=== PATIENT | female | born 1965 | race Caucasian/White ===

== ENCOUNTER 2018-06-26 09:19 | Day surgery (SDC) | payer BC, SELFPAY ==
[2018-06-26 09:35] VITALS: BP 114/77; PULSE 64; RESP 16; TEMP 37; O2SAT 97
[2018-06-26] MEDS: Lactated Ringers 1,000 ML 80 ML IV (09:54)
[2018-06-26] MEDS: ceFAZolin 2 GM/50 ML BAG IVPB (10:45)
[2018-06-26] MEDS: Sodium Bicarbonate 50 MEQ/50 ML VIAL (10:55)
[2018-06-26] MEDS: Lidocaine 1% Multi-Dose 50 ML VIAL (10:55)
--- NOTE | 2018-06-26 11:14 | W.PM.DSUDISC ---
Discharge Plan Disposition Patient Disposition: HOME Condition: Good Discharge Details Reason For Visit: R CTS Attending Provider: Puneet Her Primary Care Provider: Nathaniel Vitale Home Meds and New Rx's Prescriptions: New hydrocodone-acetaminophen 5-325 mg tablet 1 tab PO Q4H PRN (Reason: pain) Qty: 6 RF: 0 acetaminophen 500 mg tablet 500 mg PO Q6H PRN PRN (Reason: pain) Qty: 60 RF: 3 ibuprofen 600 mg tablet 600 mg PO TID PRNQty: 60 RF: 3 No Action levothyroxine [Synthroid] 75 mcg tablet 75 mcg PO DAILY RF: 0 Discharge Instructions Stand Alone Forms: Sidraa Jeanie Tunnel Release Referrals: Puneet Her MD [ [facility] STAFF PHYSICIAN] - Activity:: Elevate Remove Dressings/Wound Care:: 48 hours Shower/Bathe:: 48 hours Diet:: As Tolerated Discharge Orders Discharge Orders: Discharge Order (Routine); Ordered 06/26/18 Ordered By: Puneet Her DS: Diagnosis Discharge Diagnosis (1) Right carpal tunnel syndrome: Status: Acute
[2018-06-26 11:42] VITALS: BP 92/54; PULSE 48; RESP 16; TEMP 36.8; O2SAT 95
--- NOTE | 2018-06-27 07:02 | W.PM.OP ---
Date of service: 06/26/18 Time of Service: 11:02 Operative Note DATE OF PROCEDURE: 06/26/18 PRE-OP DIAGNOSIS: Right carpal tunnel syndrome POST-OP DIAGNOSIS: same PROCEDURE: Right Endoscopic Carpal Tunnel Release SURGEON: Puneet Her ANESTHESIA: MAC ESTIMATED BLOOD LOSS: 0 PATHOLOGY: none sent TOURNIQUET TIME: 6 COMPLICATIONS: None Patient was transported to: same day Patient's condition: stable Indications: I have seen Lexie in clinic for symptoms of carpal tunnel syndrome. The numbness, tingling, and pain limited function. Clinical exam findings confirmed the diagnosis of carpal tunnel syndrome. Nonoperative measures such as bracing, time, activity modifications had been tried but disability and pain persisted. I discussed carpal tunnel release with the patient. I reviewed the risks of the procedure to include, but not limited to, bleeding, infection, pain, stiffness, incomplete release, damage to nerves or vessels, persistent numbness, recurrence. Despite these risks, the patient elected to proceed. Findings: There was tightened carpal tunnel. This was dilated and released successfully with the endoscopic with increased space within the tunnel. The antebrachial fascia was released proximally freeing the median nerve at the wrist. Procedure Description: Lexie was greeted in the preoperative holding area where the correct side was identified and marked. The consent was reviewed with the patient and signed. The history and physical was updated. All questions were answered. She was taken back to the operating room. The patient was placed into the supine position on the operating room table with the right arm on an arm board. A nonsterile tourniquet was placed high onto the arm. All bony prominences were well padded. Prophylactic antibiotics in the form of cefazolin were administered. The right arm was then prepped with Chloraprep and draped in a standard fashion with stockinette and extremity drape. A timeout to confirm correct identity, side and site, procedure, allergies, anesthesia, and medical concerns was performed. The surgical site was marked in the volar wrist creases in line with the radial border of the fourth ray. This area was anesthetized with approximately 6cc of 1% Lidocaine. The limb was then exsanguinated with an Esmarch. The skin was incised with a 15 blade, approximately 1cm. The skin only was cut and the deeper tissue was dissected bluntly with a tenotomy scissor, avoiding passing nerve and venous structures. The fascia was penetrated and opened bluntly. A two-prong skin hook was placed under this proximal fascial edge. A series of hamate finders were used to identify and dilate the carpal tunnel. Synovial elevator was used to free synovial attachments to the underside of the transverse carpal ligament. My thumb was kept in the palm to den the distal extent of the carpal tunnel and correctly position the hand. The Microaire endoscope was inserted without difficulty and without resistance. Excellent visualization showed horizontally running fibers of the transverse carpal ligament (TCL). The distal extent of the TCL was visualized and the end of the scope palpated with the thumb. The blade was elevated and withdrawn from distal to proximal. The TCL was split into two flaps. The endoscope was reinserted to confirm complete release and any remnant ligament was incised. The scope was withdrawn and the proximal aspect of the carpal tunnel was grossly inspected and appeared release with the median nerve visible. The antebrachial fascia at the level of the wrist was then freed from the overlying skin and then the underlying median nerve with blunt dissection. This was transected longitudinally for about 3cm proximal to the wrist incision. The wound was then irrigated with easy flow of irrigant distally and proximally. The incision was closed with a single 4-0 Nylon suture. The wound was dressed with Xeroform, Gauze, Kerlix and Shine. The tourniquet was deflated with the initial dressing and held with some pressure. Blood flow returned easily to all digits with capillary refill less than 2 seconds. The patient tolerated the procedure well and was returned to the Same Day Surgery area in a stable condition suffering no known complication.
== END 2018-06-26 12:04 | disposition home or self-care (01) ==
PROVIDERS: PCP Family Medicine; Visit Provider Student in an Organized Health Care Education/Training Program
PROC: 01N54ZZ Release Median Nerve, Percutaneous Endoscopic Approach (ICD-10-PCS; CPT 29848; principal; 2018-06-26 11:00)
DX: G56.01 Carpal tunnel syndrome, right upper limb (principal)
CPT/HCPCS: 29848; J0690; L3650

== ENCOUNTER 2018-07-05 06:27 | Day surgery (SDC) | payer BC, SELFPAY ==
[2018-07-05 06:40] VITALS: BP 102/67; PULSE 63; RESP 14; TEMP 35.6; O2SAT 98
[2018-07-05] MEDS: Lactated Ringers 1,000 ML 80 ML IV (07:00)
--- NOTE | 2018-07-05 07:06 | PDOC.DSDIS_ITS ---
Discharge Plan Disposition Patient Disposition: HOME Condition: Good Discharge Details Reason For Visit: Left Carpal Tunnel Attending Provider: Puneet Her Primary Care Provider: Nathaniel Vitale Home Meds and New Rx's Prescriptions: Continued levothyroxine [Synthroid] 75 mcg tablet 75 mcg PO DAILY RF: 0 hydrocodone-acetaminophen 5-325 mg tablet 1 tab PO Q4H PRN (Reason: pain) Qty: 6 RF: 0 acetaminophen 500 mg tablet 500 mg PO Q6H PRN PRN (Reason: pain) Qty: 60 RF: 3 ibuprofen 600 mg tablet 600 mg PO TID PRNQty: 60 RF: 3 Discharge Instructions Stand Alone Forms: Arden Ware Tunnel Release Referrals: Puneet Her MD [ [facility] STAFF PHYSICIAN] - Activity:: Elevate Remove Dressings/Wound Care:: 48 hours Shower/Bathe:: 48 hours Diet:: As Tolerated Discharge Orders Discharge Orders: Discharge Order (Routine); Ordered 07/05/18 Ordered By: Puneet Her DS: Diagnosis Discharge Diagnosis (1) Left carpal tunnel syndrome: Status: Acute
[2018-07-05] MEDS: Lidocaine 1% Multi-Dose 50 ML VIAL (07:26)
--- NOTE | 2018-07-05 07:42 | W.PM.OP ---
Date of service: 07/05/18 Time of Service: 07:42 Operative Note DATE OF PROCEDURE: 07/05/18 PRE-OP DIAGNOSIS: Left Carpal Tunnel Syndrome POST-OP DIAGNOSIS: same PROCEDURE: Left Endoscopic Carpal Tunnel Release SURGEON: Puneet Her ANESTHESIA: MAC ESTIMATED BLOOD LOSS: 0 PATHOLOGY: none sent TOURNIQUET TIME: 8 COMPLICATIONS: None Patient was transported to: same day Patient's condition: stable Indications: I have seen Lexie in clinic for symptoms of carpal tunnel syndrome. The numbness, tingling, and pain limited function. Clinical exam findings confirmed the diagnosis of carpal tunnel syndrome. Nonoperative measures such as bracing, time, activity modifications had been tried but disability and pain persisted. I discussed carpal tunnel release with the patient. She had a successful release on the right side. I reviewed the risks of the procedure to include, but not limited to, bleeding, infection, pain, stiffness, incomplete release, damage to nerves or vessels, persistent numbness, recurrence. Despite these risks, the patient elected to proceed. Findings: There was tightened carpal tunnel. There was notable synovitis seen within the carpal tunnel. This was dilated and released successfully with the endoscopic with increased space within the tunnel. The antebrachial fascia was released proximally freeing the median nerve at the wrist. Procedure Description: Lexie was greeted in the preoperative holding area where the correct side was identified and marked. The consent was reviewed with the patient and signed. The history and physical was updated. All questions were answered. Lexie was taken back to the operating room. The patient was placed into the supine position on the operating room table with the left arm on an arm board. A nonsterile tourniquet was placed high onto the arm. All bony prominences were well padded. Prophylactic antibiotics in the form of Cefazolin were administered. The left arm was then prepped with Chloraprep and draped in a standard fashion with stockinette and extremity drape. A timeout to confirm correct identity, side and site, procedure, allergies, anesthesia, and medical concerns was performed. The surgical site was marked in the volar wrist creases in line with the radial border of the fourth ray. This area was anesthetized with approximately 6cc of 1% Lidocaine. The limb was then exsanguinated with an Esmarch. The skin was incised with a 15 blade, approximately 1cm. The skin only was cut and the deeper tissue was dissected bluntly with a tenotomy scissor, avoiding passing nerve and venous structures. The fascia was penetrated and opened bluntly. A two-prong skin hook was placed under this proximal fascial edge. A series of hamate finders were used to identify and dilate the carpal tunnel. Synovial elevator was used to free synovial attachments to the underside of the transverse carpal ligament. My thumb was kept in the palm to den the distal extent of the carpal tunnel and correctly position the hand. The Microaire endoscope was inserted without difficulty and without resistance. Excellent visualization showed horizontally running fibers of the transverse carpal ligament (TCL). The distal extent of the TCL was visualized and the end of the scope palpated with the thumb. The blade was elevated and withdrawn from distal to proximal. The TCL was split into two flaps. The endoscope was reinserted to confirm complete release and any remnant ligament was incised. The scope was withdrawn and the proximal aspect of the carpal tunnel was grossly inspected and appeared release with the median nerve visible. The antebrachial fascia at the level of the wrist was then freed from the overlying skin and then the underlying median nerve with blunt dissection. This was transected longitudinally for about 3cm proximal to the wrist incision. The wound was then irrigated with easy flow of irrigant distally and proximally. The incision was closed with a single 4-0 Nylon suture. The wound was dressed with Xeroform, Gauze, Kerlix and Shine. The tourniquet was deflated with the initial dressing and held with some pressure. Blood flow returned easily to all digits with capillary refill less than 2 seconds. The suture from the right side was removed with usual suture removal technique. The patient tolerated the procedure well and was returned to the Same Day Surgery area in a stable condition suffering no known complication.
[2018-07-05 08:15] VITALS: BP 84/56; PULSE 54; RESP 16; TEMP 35.7; O2SAT 100
== END 2018-07-05 08:28 | disposition home or self-care (01) ==
PROVIDERS: PCP Family Medicine; Visit Provider Student in an Organized Health Care Education/Training Program
PROC: 01N54ZZ Release Median Nerve, Percutaneous Endoscopic Approach (ICD-10-PCS; CPT 29848; principal; 2018-07-05 07:30)
DX: G56.02 Carpal tunnel syndrome, left upper limb (principal)
CPT/HCPCS: 29848; J1100; J1885; J2405

== ENCOUNTER 2018-11-23 09:42 | Outpatient (CLI) | payer BC, SELFPAY ==
--- NOTE | 2018-11-23 09:59 | DI.RAD_ITS ---
SYMPTOM/DIAGNOSIS: RT SHOULDER PAIN RIGHT SHOULDER: Five views. No priors. There are mild hypertrophic changes seen at the acromioclavicular joint. The glenohumeral joint is well maintained. The bones are intact and normally mineralized. The soft tissues are unremarkable. IMPRESSION: Degenerative changes of the right acromioclavicular joint.
== END 2018-11-23 10:02 ==
PROVIDERS: PCP Family Medicine; Visit Provider Physician Assistant
DX: M25.511 Pain in right shoulder (principal); M19.011 Primary osteoarthritis, right shoulder
CPT/HCPCS: 73030

== ENCOUNTER 2018-12-06 03:47 | Outpatient (CLI) | payer BC, SELFPAY ==
--- NOTE | 2018-12-06 06:50 | DI.MRI_ITS ---
SYMPTOMS/DIAGNOSIS: RT SHOULDER PAIN, INJURY A CHILD, M25.551 RIGHT SHOULDER MRI: MRI examination of the shoulder was performed following intra-articular injection of contrast material by Dr. Her. Motion artifact limits interpretations of some images. There is hypertrophic degenerative spurring at the acromioclavicular joint and to a lesser degree of the glenoid and the humerus. Mild effacement of the glenoid labrum is noted without a focal tear. There is fluid in the biceps tendon sheath. The biceps tendon appears intact throughout its course. Normal signal in biceps tendon noted. There is an apparent partial thickness undersurface tear of the mid supraspinatus tendon, no retraction and no full thickness tear. No fluid in the subacromial bursa. The remainder of the rotator cuff appears normal. No gross ligamentous abnormality seen. Small subchondral cyst is noted in the greater tuberosity of the humerus. CONCLUSION: Somewhat limited study. Partial thickness undersurface supraspinatus nonretracted tear as described above. Hypertrophic degenerative changes at AC joint and glenohumeral joint. No additional significant findings.
[2018-12-06] MEDS: Gadoterate meglumine 20 ML VIAL 10 ML IVP (08:08)
[2018-12-06] MEDS: Lidocaine 2% Multi-Dose 20 ML VIAL IJ (08:10)
[2018-12-06] MEDS: Omnipaque 300 MG/ML 10 ML BTL IJ (08:10)
--- NOTE | 2018-12-06 08:10 | DI.RAD_ITS ---
SYMPTOM/DIAGNOSIS: RT SHOULDER PAIN. MRI ARTHROGRAM M25.511 FLUOROSCOPY 12/06 Fluoroscopy Time: 5 sec Fluoroscopy was utilized by Dr. Her during shoulder injection. Hard copy shows intra-articular injection reportedly on the right.
[2018-12-06] MEDS: Bupivacaine 0.5% Pres-Free 10 ML VIAL IJ (08:12)
--- NOTE | 2018-12-06 10:31 | DI.VRAD_ITS ---
EXAM: MR Right Upper Extremity Joint Without Contrast, Shoulder EXAM DATE/TIME: 12/06/2018 9:06 AM CLINICAL HISTORY: 53 years old, female; Other: Right shoulder pain; Injury as a child; Additional info: Mri arthrogram TECHNIQUE: Imaging protocol: MR of the Right upper extremity without contrast. Exam focused on the shoulder. COMPARISON: RF RT SHOULDER JOINT INJECTION 12/06/2018 7:51 AM FINDINGS: Some motion artifact limits evaluation. Rotator cuff: Mild tendinosis of the supraspinatus tendon. There is undersurface partial tearing of the proximal to mid fibers which measures approximately 0.7 cm. The infraspinatus, subscapularis and teres minor tendons are intact. Biceps tendon: Intact and centrally located in the bicipital groove. Glenoid labrum: Intact. Bones: Mild to moderate degenerative changes of the acromioclavicular joint. No acute fracture. There is a type I acromion on sagittal views. Subchondral cysts visualized in the posterior lateral humeral head. Other: No significant joint effusion. There is edema in the anterior soft tissues secondary to recent injection. IMPRESSION: 1. Supraspinatus tendon tendinosis with small undersurface partial tear. 2. 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 Dictated and Authenticated by: Neli Vazquez MD. Ordering:CONCEPCIÓN Smith MD
--- NOTE | 2018-12-07 17:08 | W.PROCNOTE ---
Date of service: 12/06/18 Time of Service: 08:08 Procedure Note Date of procedure: 12/06/18 Procedure: Right Shoulder Injection Surgeon/Proceduralist/Physician: Puneet Her Procedure Diagnosis: Right shoulder pain and instability Procedure Indications: Lexie has had persistent pain and instability of the RIGHT shoulder. Noninvasive measures have been tried. To serve as both diagnostic and therapeutic, an injection under fluoroscopy was recommended. I had discussed the risks of the procedure and the patient elected to proceed. Procedure Description: Lexie was greeted in the flouroscopy room. The correct side was identified and the consent was reviewed with the patient and signed. The patient was then placed in the supine position on the fluoroscopy table. The RIGHT shoulder was then prepped with Chloraprep. The anterior injection starting point was identiifed by bony landmarks and fluoroscopy. The skin and soft tissue in the tract of the injection was anesthetized with 1% Lidocaine. A spinal needle was then inserted deep into the shoulder joint at the level of the recess between the glenoid and superior humeral head. A small amount of Omnipaque solution was injected to confirm intraarticular placement. Once confirmed, the shoulder was injected with 12c of a mixture of 10cc of 0.5% Bupivicaine, 5cc of 2% Xylocaine, 5cc of Omnipaque, and 0.4cc of Gadavistl. A bandaid was placed on the injection site.
== END 2018-12-06 04:07 ==
PROVIDERS: PCP Family Medicine; Visit Provider Student in an Organized Health Care Education/Training Program
DX: M25.511 Pain in right shoulder (principal); M75.101 Unspecified rotator cuff tear or rupture of right shoulder, not specified as traumatic; M19.011 Primary osteoarthritis, right shoulder; M25.311 Other instability, right shoulder
CPT/HCPCS: 20610; 77002; 73221; J3490

== ENCOUNTER 2019-01-03 05:55 | Day surgery (SDC) | payer BC, SELFPAY ==
[2019-01-03] VITALS (8 sets, daily range): BP systolic 95–113; BP diastolic 57–80; PULSE 45–68; RESP 14–18; TEMP 36–36.5; O2SAT 95–98
[2019-01-03] MEDS: Lactated Ringers 1,000 ML 100 ML IV ×2 (06:54→08:03)
--- NOTE | 2019-01-03 07:09 | W.PM.DSUDISC ---
Discharge Plan Disposition Patient Disposition: HOME Condition: Stable Discharge Details Reason For Visit: RTC REPAIR Attending Provider: Woody Romero Primary Care Provider: Nathaniel Vitale Home Meds and New Rx's Prescriptions: New naproxen 250 mg tablet 250 mg PO BID PRN (Reason: pain) Qty: 60 RF: 0 aspirin 81 mg tablet,delayed release (DR/EC) 81 mg PO DAILY Qty: 30 RF: 0 oxycodone 5 mg tablet 5 mg PO Q4H PRN (Reason: pain, severe) Qty: 22 RF: 0 Continued levothyroxine [Synthroid] 75 mcg tablet 75 mcg PO DAILY RF: 0 acetaminophen 500 mg tablet 500 mg PO Q6H PRN PRN (Reason: pain) Qty: 60 RF: 3 Centrum Complete 18-400 mg-mcg Tablet 1 tab PO QAM RF: 0 Discontinued ibuprofen 600 mg tablet 600 mg PO TID PRNQty: 60 RF: 3 Discharge Instructions Additional Instructions: see separate forms Referrals: Woody Romero MD [ [facility] STAFF PHYSICIAN] - Discharge Orders Discharge Orders: Discharge Order (Routine); Ordered 01/03/19 Ordered By: Woody Romero
[2019-01-03] MEDS: ceFAZolin 2 GM/50 ML BAG IVPB (07:38)
[2019-01-03] MEDS: EPINEPHrine 1 MG/ML AMP pres-free (11:55)
--- NOTE | 2019-01-03 17:11 | ROE_ITS ---
Date of service: 01/03/19 Time of Service: 17:11 Operative Note Operative Note DATE OF PROCEDURE: 01/03/19 PRE-OP DIAGNOSIS: RIGHT shoulder: 1. Rotator cuff tear 2. LHB tendinopathy 3. Bursitis 4. Impingement 5. Multi-directional instability 6. Labral tear POST-OP DIAGNOSIS: same PROCEDURE: RIGHT shoulder arthroscopic: 1. Extensive debridement, CPT# 66210. This involved using arthroscopic hand instruments, power instruments, and radiofrequency instruments to debride areas of labral tearing, synovitis, and chondromalacia within the glenohumeral joint and subacromial region. 2. Biceps tenodesis, CPT# 97745. This involved reattaching the long head of the biceps tendon to the proximal humerus in the sub-pectoral area of the bicipetal groove at the correct tension. 3. Subacromial decompression, CPT# 86674. This involved releasing the coraco- acromial ligament using a radiofrequency wand, using a high-speed shaver to complete a bursectomy, and using a high-speed chriss to complete removal of bone spurs on the undersurface of the acromion. 4. Rotator cuff repair, CPT# 82772. This involved repair of the subscapularis and supraspinatus using anchors and sutures to reattach the rotator cuff back to the footprint of the lesser and greater tuberosity. 5. Posterior labral repair. This involved repair of a posterior labral tear back to the posterior glenoid rim using suture and anchor. 6. Capsular shift. This involved closure of the rotator interval using sutures passed between the MGHL and SGHL, which shifted the anterior inferior capsule superiorly to reduce pathologic laxity. The assistant front desk manager was medically required in order to help assist in techniques above, which require positioning the arm, holding the arthroscope, and manipulating 2 to 4 instruments and sutures at the same time. This cannot be done without the help of an experienced assistant front desk manager. SURGEON: Woody Romero ASSISTING SURGEON: Sarah Hernandez ANESTHESIA: GETA and regional ESTIMATED BLOOD LOSS: 30 PATHOLOGY: none sent COMPLICATIONS: None Patient was transported to: PACU Patient's condition: stable Implants: Arthrex: 4.75mm SwiveLocks x 2, Unicortical Proximal Biceps Tenodesis Button, 3.9 mm Knotless Corkscrew anchor x 2, and 2.9 mm PushLock Indications: The patient was diagnosed with the above conditions, failed exhaustive conservative nonoperative treatment measures, and appropriately indicated for surgical intervention. Findings: Right shoulder: Exam under anesthesia revealed multidirectional instability. Significant sulcus sign that was not diminished with external rotation. Anterior and posterior subluxation under testing. Significant synovitis, disruption of the biceps sling and medial subluxation of the biceps tendon. Inflammation and injection of the biceps tendon. Anterior, superior, posterior labral tearing. Full-thickness upper border of the subscapularis tendon tear. 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 Partial articular sided supraspinatus and infraspinatus tearing exposing approximately 50% of the footprint. Extensive subacromial bursitis and acromial bone spur. Intact bursal supraspinatus and infraspinatus tendons. Procedure Description: The patient was taken to the operating room and transferred to the operating room table. The correct patient, side of the procedure, and procedure were all verified prior to induction of general anesthesia. While under anesthesia, bilateral shoulders were examined. The patient was then positioned in the beachchair position. All bony prominences were well-padded. Preoperative antibiotics were administered. The shoulder and upper extremity was prepped and draped in the usual sterile fashion. Standard posterior portal was then made using a stab incision inferior and medi al to the posterior lateral aspect of the acromion. The arthroscope was placed into the glenohumeral joint and a complete diagnostic arthroscopy was performed. An anterior portal was made. A biceps tenotomy was done using hand instruments. The anterior labrum, superior labrum, biceps stump, and synovitis around the middle glenohumeral ligament were debrided as well as the biceps sling and adjac ent chondromalacia on the humeral head using hand instruments and power instruments. The subscapularis tear was identified and mobilized. Using a single portal technique suture sutures were passed into the subscapularis. This consisted of a fiber snare and a fiber tape. These were attached to a 4.75 mm swivel lock that was placed onto a debrided lesser tuberosity. This repair was tested throu gh external rotation and found to be both stable and strong. I then switched portals viewing from anterior and debrided significant labral fraying more posteriorly and superiorly. Next, attention was turned to the mini open biceps tenodesis. Local anesthetic was infiltrated about the sub-pectoral incision. Blunt dissection was carried down to the bicipital groove. Retractors were carefully placed to protect neurovascular structures as the long head of the biceps tendon was identified and brought out of the incision. The tenodesis location was debrided with a rasp about 1 cm proximal to the inferior margin of the pectoralis major tendon. The tendon was found to be significantly frayed and edematous. The tendon was prepared using a fiber loop suture starting a centimeter proximal to the musculotendinous junction and the excess amputated. A power drill was used to localize placement of a unicortical biceps button. The sutures were threaded into the button which was placed into the proximal humerus and flipped and then tested thoroughly to ensure proper fixation in the intramedullary canal. The sutures were used the slide the tendon down to the prepared bone and it was tied in place. This wound was then copiously irrigated. Subcutaneous tissue was closed using 3-0 Monocryl in a buried interrupted fashion. The skin was closed using 3-0 Monocryl in a buried running fashion. Skin glue was applied to the incision. A sterile nonadhesive bandage was applied on top. Attention was returned to the shoulder and the arthroscope introduced into the subacromial space from posterior. A lateral portal was made. A complete bursectomy was performed from both the posterior and lateral portals using power instruments and radiofrequency instruments. A bone spur on the underside of the acromion was identified at the origin of the coracoacromial ligament and this was smoothed using a power bur. The supraspinatus and infraspinatus tendons were inspected and there were no areas of bursal sided tearing. I took another look at the articular side of these tendons and found them to be avulsed from the articular margin, more so for the infraspinatus then supraspinatus. I return to the subacromial space completed a lateral bursectomy and another thorough evaluation of the bursal sided rotator cuff. No bursal tear was appreciated. The decision was made to perform a percutaneous PASTA type repair, which is basically a Remlissage, so will also address the patient's instability. This was performed via an jessica-superior lateral and a postero-superior lateral stab, percutaneous portals which were localized to the articular margin of the middle supraspinatus and middle infraspinatus. 2 knotless corkscrew anchors were inserted from anterior to posterior. A passport was then inserted into the lateral portal and working back in the subacromial space each repair stitch was passed through the other anchor and brought out laterally. Both repair stitches were preliminarily tightened. I then returned to the joint and visualized reduction of the supraspinatus and infraspinatus back to the articular margin. I tested the repair with a switching stick and found to to be stable to the footprint. I then returned to the subacromial space and brought both of repair stitches lateral to a SwiveLock anchor. The repair was once again inspected and found to be strong and stable. I return to the glenohumeral joint through the anterior portal and decided to perform a posterior labral repair with capsular plication. This was done through the standard posterior portal using a suture lasso and suture tape. The glenoid rim was prepared using a labral elevator. An accessory posterior portal was localized with a spinal needle and then used to drill for the anchor. A Bisi was placed into this portal and the sutures were brought out and loaded to a push lock anchor. The anchor was then placed into the drilled socket with correct tension on the cinched suture tape labrum and posterior capsule stitch. This repair was tested with a probe and found to be stable. I then returned to viewing from the standard posterior portal. The decision was made to address this patient significant sulcus sign, apprehension, and instability with one more additional procedure?a rotator interval closure, which in effect would shift the anterior inferior glenohumeral ligament and capsule superiorly. This was done using a bird's beak suture passer through the anterior portal with 2 FiberWire sutures, which were tied using arthroscopic instruments on the anterior side of the capsule. All portal sites were copiously irrigated. The large Bisi incisions had subcutaneous tissue approximated using 2-0 Monocryl. All incisions were closed using 3-0 nylon with a combination of portal stitches and simple stitches. All incisions were covered with Xeroform, dry gauze, and ABDs. The dressings were covered with foam tape. The patient awoke from anesthesia without complication. The operative extremity was placed into a sling for mobilization. The patient was transferred to the recovery room in stable condition.
== END 2019-01-03 14:30 | disposition home or self-care (01) ==
PROVIDERS: PCP Family Medicine; Visit Provider Student in an Organized Health Care Education/Training Program
PROC: (CPT 29827; principal; 2019-01-03 07:30)
PROC: (CPT 23430; 2019-01-03 07:30)
DX: M25.311 Other instability, right shoulder (principal); M75.21 Bicipital tendinitis, right shoulder; M75.41 Impingement syndrome of right shoulder; M75.101 Unspecified rotator cuff tear or rupture of right shoulder, not specified as traumatic; M75.51 Bursitis of right shoulder; M25.511 Pain in right shoulder; S43.491A Other sprain of right shoulder joint, initial encounter; X58.XXXA Exposure to other specified factors, initial encounter; M65.811 Other synovitis and tenosynovitis, right shoulder; M94.211 Chondromalacia, right shoulder; M75.81 Other shoulder lesions, right shoulder
CPT/HCPCS: 29806; 23430; 29827; 29826; 29807; 29823; C1713; J0131; J0171; J0690; J1100; J1885; J2250; J2405; J3010; L3670

== ENCOUNTER 2019-03-20 00:59 | Outpatient (CLI) | payer BC, SELFPAY ==
--- NOTE | 2019-03-20 07:54 | DI.MAMMO_ITS ---
EXAM: MAMMO SCREENING CLINICAL HISTORY: SCREENING, Z12.31 TECHNIQUE: Mammograms were interpreted according to the usual protocol including computer analysis w [employer] CAD system, tomosynthesis and C-view imaging. COMPARISON: No prior studies available for comparison FINDINGS: The breasts are of moderate density with fairly symmetrical distribution of fibroglandular tissue. N o dominant mass or clumped microcalcification is identified in either breast. No prior studies avail able for comparison. IMPRESSION: No specific evidence of malignancy at this time. Routine screening examinations are suggested at year ly intervals due to the family history of breast carcinoma. Category 1, breast density category B. BI-RADS Cat 1 - Negative Breast Density - Category B - Scattered areas of fibroglandular density
== END 2019-03-20 01:19 ==
PROVIDERS: PCP Family Medicine; Visit Provider Family Medicine
DX: Z12.31 Encounter for screening mammogram for malignant neoplasm of breast (principal); Z80.3 Family history of malignant neoplasm of breast
CPT/HCPCS: 77063; 77067

== ENCOUNTER 2020-04-06 02:12 | Outpatient (CLI) | payer BC, SELFPAY ==
--- NOTE | 2020-04-06 07:54 | DI.MAMMO_ITS ---
EXAM: MG MAMMO SCREENING CLINICAL HISTORY: SCREENING,Z12.31. TECHNIQUE: Bilateral full field digital CC and MLO mammographic images were obtained with 3D tomosyn thesis and utilizing computer aided detection (CAD). COMPARISON: Prior baseline mammogram performed March 2019. this patient had bilateral breast redu ction surgery 25 years ago. Grandmother with history of premenopausal breast cancer in her 30s. FINDINGS: Asymmetric density in the retroareolar region of the left breast is unchanged from the baseline mammo gram 1 year ago. Possibly dilated duct. Recommend ultrasound. Few benign microcalcifications are n oted in the left breast. No new right breast findings no new architectural distortion or skin thickening-traction. IMPRESSION: No radiographic evidence of malignancy in the right breast.. Asymmetric density left breast retroareolar region. Recommend follow-up ultrasound. BI-RADS Category 0 - Assessment Incomplete: Need additional imaging evaluation Breast Density - Category B - Scattered areas of fibroglandular density Breast density Category C or D implies that the patient has dense breast tissue. Dense breast tissue can make it harder to find cancer on a mammogram. Dense breast tissue is also associated with an incr eased risk of breast cancer. This information about the result of the mammogram report was provided to the patient to raise their awareness. Use this report when you speak with the patient about their risks for breast cancer, which includes their family history. At that time, you may recommend additional screening tests (Ultrasoun d or MRI) as these tests may add significant information. A negative radiographic report should not delay biopsy if a dominant or clinically suspicious mass is present. Up to ten percent of cancers are not identified on mammography. A negative report may reinforce clinical impression. Adenosis and dense breasts may obscure an underlying neoplasm. False positive reports average 6 to 10%. Patient will receive a letter notifying them of these results.
== END 2020-04-06 02:32 ==
PROVIDERS: PCP Family Medicine; Visit Provider Family Medicine
DX: Z12.31 Encounter for screening mammogram for malignant neoplasm of breast (principal); R92.8 Other abnormal and inconclusive findings on diagnostic imaging of breast; Z80.3 Family history of malignant neoplasm of breast
CPT/HCPCS: 77063; 77067

== ENCOUNTER 2020-04-09 01:10 | Outpatient (CLI) | payer BC, SELFPAY ==
--- NOTE | 2020-04-09 | DI.US_ITS ---
EXAM: US BREAST LT LIMITED CLINICAL HISTORY: F/U MAMMO, ASYMMETRIC DENSITY LT BREST, ? DILATED DUCT. TECHNIQUE: Limited ultrasound of the left breast was performed. COMPARISON: Prior mammograms were reviewed. March 2019 and April 06, 2020 FINDINGS: No evidence of solid or significant cystic lesion. No dilated ducts seen. IMPRESSION: Negative left breast ultrasound Appropriate follow-up is to keep this patient yearly mammogram schedule, with earlier imaging if a se lf detected breast change is noted. BI-RADS Category 2 - Benign Findings Breast Density - Category B - Scattered areas of fibroglandular density Breast density Category C or D implies that the patient has dense breast tissue. Dense breast tissue can make it harder to find cancer on a mammogram. Dense breast tissue is also associated with an incr eased risk of breast cancer. This information about the result of the mammogram report was provided to the patient to raise their awareness. Use this report when you speak with the patient about their risks for breast cancer, which includes their family history. At that time, you may recommend additional screening tests (Ultrasoun d or MRI) as these tests may add significant information. A negative radiographic report should not delay biopsy if a dominant or clinically suspicious mass is present. Up to ten percent of cancers are not identified on mammography. A negative report may reinforce clinical impression. Adenosis and dense breasts may obscure an underlying neoplasm. False positive reports average 6 to 10%. Patient will receive a letter notifying them of these results.
== END 2020-04-09 01:30 ==
PROVIDERS: PCP Family Medicine; Visit Provider Family Medicine
DX: R92.8 Other abnormal and inconclusive findings on diagnostic imaging of breast (principal)
CPT/HCPCS: 76642